=== PATIENT | female | born 1985 | race Caucasian/White ===

== ENCOUNTER 2018-04-23 19:56 | Emergency (ER) | payer BC ==
[~2018-04-23] VITALS: Ht 160 cm; Wt 83.0 kg
[2018-04-23] MEDS ORDERED: SODIUM CHLORIDE FLUSH 10ML SYR IVF ONE ×2 (20:30→21:30)
[2018-04-23] MEDS ORDERED: ONDANSETRON 2MG/ML, 2ML ONE (21:17)
[2018-04-23] MEDS ORDERED: MORPHINE SULFATE 4 MG/ML, 1ML ONE ×3 (21:17→23:43)
[2018-04-23 21:18] LABS: BASOPHILS # (AUTO) 0.13 x10^3/uL (0-0.1); BASOPHILS % (AUTO) 1 % (0-1); EOSINOPHILS % (AUTO) 1 % (1-7); LYMPHOCYTES # (AUTO) 2.68 x10^3/uL (1-3.4); LYMPHOCYTES % (AUTO) 25 % (22-44); MD NO; MEAN CORPUSCULAR HEMOGLOBIN 30.3 pg (27.0-34.8); MEAN CORPUSCULAR HGB CONC 33.8 g/dL (32.4-35.8); MEAN CORPUSCULAR VOLUME 89.7 fL (80-100); MONOCYTES # (AUTO) 0.84 x10^3/uL (0.2-0.8); MONOCYTES % (AUTO) 8 % (2-9); NEUTROPHILS # (AUTO) 6.92 x10^3/uL (1.8-6.8); NEUTROPHILS % (AUTO) 65 % (42-75); PLATELET COUNT 307 x10^3/uL (130-400); RED BLOOD COUNT 4.05 x10^6/uL (3.82-5.3); RED CELL DISTRIBUTION WIDTH 13.8 % (9.6-15.2)
[2018-04-23 21:20] LABS: MICROSCOPIC AUTO
[2018-04-23 21:22] LABS: CULTURE INDICATED? YES
[2018-04-23 21:27] LABS: ALANINE AMINOTRANSFERASE 28 U/L (12-78); ALBUMIN 3.6 g/dL (3.4-5.0); ANION GAP 8 mmol/L (5-15); CALCIUM 8.2 mg/dL (8.5-10.1); CHLORIDE 110 mmol/L (98-107); CREATININE 0.73 mg/dL (0.55-1.02)
[2018-04-23] MEDS ORDERED: ONDANSETRON 2MG/ML, 2ML IVPush ONE (21:30)
[2018-04-23 21:32] LABS: ALKALINE PHOSPHATASE 66 U/L (45-117); BILIRUBIN,TOTAL 0.3 mg/dL (0.2-1.0); TOTAL PROTEIN 7.3 g/dL (6.4-8.2)
[2018-04-23] MEDS: MORPHINE SULFATE 4 MG/ML, 1ML IVPush PRN ×2 (21:52→23:47)
[2018-04-23] MEDS ORDERED: FLOMAX PO (22:13)
[2018-04-23] MEDS ORDERED: NAPROXEN PO (22:13)
[2018-04-23] MEDS ORDERED: OMNIPAQUE 350 MG/ML, 100ML BOTTLE ONE (23:46)
[2018-04-24] MEDS ORDERED: CEFTRIAXONE PMX 1GM/50ML 50 ML ONE (00:11)
[2018-04-24 00:15] VITALS: BP 127/82
[2018-04-24] MEDS ORDERED: CEFTRIAXONE 1,000 MG in SODIUM CHLORIDE 0.9% 50 ML IVPB ONE (00:30)
== END 2018-04-24 00:28 ==
LOC: ED 22:21
DX: R10.13 Epigastric pain (principal); R10.11 Right upper quadrant pain
CPT/HCPCS: 36415; 74018; 74177; 76705; 76770; 80053; 81001; 83690; 84703; 85025; 87086; 96365; 96375; 96376; 99285; J0696; J2405; Q9967

== ENCOUNTER 2019-03-21 10:27 | Inpatient (IN) | payer OTHER ==
[~2019-03-21] VITALS: Ht 160 cm; Wt 92.3 kg
[~2019-03-21 10:27] MED LIST: CEFOTETAN 2 GM ONE; FLOMAX PO; NAPROXEN PO; SUGAMMADEX 200 MG/2 ML IVPush ONE
[2019-03-21] MEDS ORDERED: LACTATED RINGERS 1,000 ML IV SCH (10:49)
[2019-03-21 10:50] VITALS: BP 138/86
[2019-03-21 11:27] LABS: BASOPHILS # (AUTO) 0.02 x10^3/uL (0-0.1); BASOPHILS % (AUTO) 0 % (0-1); EOSINOPHILS % (AUTO) 1 % (1-7); LYMPHOCYTES # (AUTO) 1.76 x10^3/uL (1-3.4); LYMPHOCYTES % (AUTO) 22 % (22-44); MD NO; MEAN CORPUSCULAR HEMOGLOBIN 29.8 pg (27.0-34.8); MEAN CORPUSCULAR HGB CONC 32.9 g/dL (32.4-35.8); MEAN CORPUSCULAR VOLUME 90.7 fL (80-100); MEAN PLATELET VOLUME 7.7 fL (7.4-10.4); MONOCYTES # (AUTO) 0.44 x10^3/uL (0.2-0.8); MONOCYTES % (AUTO) 6 % (2-9); NEUTROPHILS # (AUTO) 5.59 x10^3/uL (1.8-6.8); NEUTROPHILS % (AUTO) 71 % (42-75); PLATELET COUNT 368 x10^3/uL (130-400); RED BLOOD COUNT 4.45 x10^6/uL (3.82-5.3); RED CELL DISTRIBUTION WIDTH 13.1 % (9.6-15.2)
[2019-03-21] MEDS ORDERED: PLEASE ENTER HEIGHT AND WEIGHT MC SCH (11:30)
[2019-03-21 11:38] LABS: INTERNATIONAL NORMALIZED RATIO 0.96 (0.93-1.1); PROTHROMBIN TIME 10.1 Seconds (9.6-11.5)
[2019-03-21 11:45] LABS: ALANINE AMINOTRANSFERASE 19 U/L (12-78); ALBUMIN 3.9 g/dL (3.4-5.0); ANION GAP 10 mmol/L (5-15); CALCIUM 8.9 mg/dL (8.5-10.1); CHLORIDE 107 mmol/L (98-107); CREATININE 0.72 mg/dL (0.55-1.02)
[2019-03-21 11:46] LABS: HCG UR SG 1.009 (1.003-1.030)
[2019-03-21 11:47] LABS: ALKALINE PHOSPHATASE 60 U/L (45-117); BILIRUBIN,TOTAL 0.5 mg/dL (0.2-1.0); TOTAL PROTEIN 7.9 g/dL (6.4-8.2)
[2019-03-21] MEDS ORDERED: OXYcodone IR 5MG TABLET PO ONE (12:00)
[2019-03-21] MEDS ORDERED: FENTANYL PF 250 MCG/5ML ONE (14:43)
[2019-03-21] MEDS ORDERED: MIDAZOLAM 1 MG/ML, 2ML ONE (14:43)
[2019-03-21] MEDS ORDERED: ROCURONIUM 10MG/ML,5ML ONE (14:47)
[2019-03-21] MEDS ORDERED: ONDANSETRON 2MG/ML, 2ML ONE (14:47)
[2019-03-21] MEDS ORDERED: GLYCOPYRROLATE 0.2MG/1ML, 5ML ONE (14:47)
[2019-03-21] MEDS ORDERED: NEOSTIGMINE 1 MG/ML, 10ML ONE (14:47)
[2019-03-21] MEDS ORDERED: CEFAZOLIN 1,000 MG ONE (14:47)
[2019-03-21] MEDS ORDERED: PROPOFOL 10 MG/ML, 20ML ONE (14:47)
[2019-03-21] MEDS ORDERED: DEXAMETHASONE 4 MG/ML, 1ML ONE (14:47)
[2019-03-21] MEDS ORDERED: SUCCINYLCHOLINE 20 MG/ML, 10ML ONE (14:47)
[2019-03-21] MEDS ORDERED: LIDOCAINE/MPF 2%-EPI 1:200K, 20 ML ONE (15:30)
[2019-03-21] MEDS ORDERED: ALBUMIN HUMAN 5% 1,500 ML ONE (15:31)
[2019-03-21] MEDS ORDERED: HYDROmorphone 5 MG, BUPIVACAINE/PF 0.5%, 30ML 62.5 ML in SODIUM CHLORIDE 0.9% 182.5 ML EPIDCONT SCH (17:00)
[2019-03-21] MEDS ORDERED: FENTANYL PF 100 MCG/2ML ONE ×3 (19:17→20:47)
[2019-03-21] MEDS ORDERED: LORazepam 2 MG/ML, 1ML ONE (19:35)
[2019-03-21] MEDS: LORazepam 2 MG/ML, 1ML IVPush PRN ×2 (19:36→19:50)
[2019-03-21] MEDS ORDERED: HYDROmorphone 2 MG/ML, 1ML ONE (19:48)
[2019-03-21] MEDS: FENTANYL PF 100 MCG/2ML IV PRN ×2 (19:58→20:28)
[2019-03-21] MEDS ORDERED: PROMETHAZINE 25 MG/ML, 1ML IV PRN (20:00)
[2019-03-21] MEDS ORDERED: MEPERIDINE/PF 25MG/0.5ML IVPush PRN (20:00)
[2019-03-21] MEDS ORDERED: ONDANSETRON 2MG/ML, 2ML IV PRN (20:00)
[2019-03-21] MEDS ORDERED: DIPHENHYDRAMINE 50 MG/ML, 1ML IVPush PRN (20:00)
[2019-03-21] MEDS ORDERED: ONDANSETRON ODT 8 MG PO PRN (20:00)
[2019-03-21] MEDS ORDERED: PROMETHAZINE 25 MG/ML, 1ML ONE (20:14)
[2019-03-21] MEDS: HYDROmorphone 2 MG/ML, 1ML IVPush PRN ×2 (20:15→20:40)
[2019-03-21] MEDS ORDERED: OPIUM/BELLADONNA SUPP.RECT 16.2-30 MG ONE (20:24)
[2019-03-21] MEDS ORDERED: MEPERIDINE/PF 25MG/ML,1ML ONE (20:31)
[2019-03-21] MEDS: FENTANYL PF 100 MCG/2ML EPI PRN ×2 (20:55→23:06)
[2019-03-21] MEDS ORDERED: OPIUM/BELLADONNA SUPP.RECT 16.2-30 MG PR ONE (21:00)
[2019-03-21] MEDS ORDERED: EPHEDRINE 50 MG/ML, 1ML IVPush PRN (22:30)
[2019-03-21] MEDS ORDERED: FENTANYL PF 100 MCG/2ML EPIDPUSH PRN (22:30)
[2019-03-21] MEDS ORDERED: NALBUPHINE 10 MG/ML, 1ML IV PRN (22:30)
[2019-03-21] MEDS ORDERED: NALOXONE 0.4 MG/ML, 1ML IV PRN ×2 (22:30)
[2019-03-21] MEDS ORDERED: DO NOT GIVE XX SCH ×3 (22:30→23:30)
[2019-03-21] MEDS: KETOROLAC 30 MG/1 ML IM SCH (23:27)
[2019-03-22] MEDS: KETOROLAC 30 MG/1 ML IM SCH ×5 (00:04→21:31)
[2019-03-22] MEDS: POTASSIUM CHLORIDE 20 MEQ in D5%-0.45% NACL 1,000 ML IV SCH ×4 (01:04→22:50)
[2019-03-22 01:23] VITALS: BP 103/68
[2019-03-22] MEDS: FENTANYL PF 100 MCG/2ML EPI PRN ×8 (02:35→22:44)
[2019-03-22 04:11] LABS: ALBUMIN 3.1 g/dL (3.4-5.0); ANION GAP 10 mmol/L (5-15); CALCIUM 7.6 mg/dL (8.5-10.1); CHLORIDE 107 mmol/L (98-107); CREATININE 0.65 mg/dL (0.55-1.02)
[2019-03-22 04:25] LABS: BASOPHILS % (AUTO) 0 % (0-1); EOSINOPHILS % (AUTO) 0 % (1-7); LYMPHOCYTES # (AUTO) 0.65 x10^3/uL (1-3.4); LYMPHOCYTES % (AUTO) 6 % (22-44); MD NO; MEAN CORPUSCULAR HEMOGLOBIN 29.5 pg (27.0-34.8); MEAN CORPUSCULAR HGB CONC 32.6 g/dL (32.4-35.8); MEAN CORPUSCULAR VOLUME 90.4 fL (80-100); MEAN PLATELET VOLUME 7.5 fL (7.4-10.4); MONOCYTES # (AUTO) 0.79 x10^3/uL (0.2-0.8); MONOCYTES % (AUTO) 7 % (2-9); NEUTROPHILS # (AUTO) 9.25 x10^3/uL (1.8-6.8); NEUTROPHILS % (AUTO) 87 % (42-75); PLATELET COUNT 242 x10^3/uL (130-400); RED BLOOD COUNT 3.41 x10^6/uL (3.82-5.3); RED CELL DISTRIBUTION WIDTH 12.9 % (9.6-15.2)
[2019-03-22 06:34] VITALS: BP 105/69
[2019-03-22] MEDS: VENLAFAXINE 75 MG CAP ER PO SCH (08:56)
[2019-03-22] MEDS: FAMOTIDINE 20 MG/2 ML IV SCH ×2 (08:57→22:43)
[2019-03-22] MEDS: SODIUM CHLORIDE FLUSH 10ML SYR IVF SCH ×2 (08:58→22:43)
[2019-03-22] MEDS: HYDROmorphone 5 MG, BUPIVACAINE/PF 0.5%, 30ML 62.5 ML in SODIUM CHLORIDE 0.9% 182.5 ML EPIDCONT SCH (13:30)
[2019-03-22 13:43] VITALS: BP 99/64
[2019-03-22] MEDS ORDERED: LORazepam 2 MG/ML, 1ML IV PRN (14:00)
[2019-03-22 20:03] VITALS: BP 98/62
[2019-03-23] MEDS: FENTANYL PF 100 MCG/2ML EPI PRN ×6 (01:43→22:46)
[2019-03-23] MEDS: KETOROLAC 30 MG/1 ML IM SCH ×4 (03:27→21:00)
[2019-03-23 03:34] VITALS: BP 90/54
[2019-03-23] MEDS: POTASSIUM CHLORIDE 20 MEQ in D5%-0.45% NACL 1,000 ML IV SCH ×3 (04:59→22:32)
[2019-03-23 06:36] LABS: BASOPHILS # (AUTO) 0.09 x10^3/uL (0-0.1); BASOPHILS % (AUTO) 1 % (0-1); EOSINOPHILS # (AUTO) 0.02 x10^3/uL (0-0.4); EOSINOPHILS % (AUTO) 0 % (1-7); LYMPHOCYTES # (AUTO) 1.73 x10^3/uL (1-3.4); LYMPHOCYTES % (AUTO) 17 % (22-44); MEAN CORPUSCULAR HEMOGLOBIN 29.1 pg (27.0-34.8); MEAN CORPUSCULAR HGB CONC 32.4 g/dL (32.4-35.8); MEAN CORPUSCULAR VOLUME 89.9 fL (80-100); MEAN PLATELET VOLUME 7.2 fL (7.4-10.4); MONOCYTES # (AUTO) 1.28 x10^3/uL (0.2-0.8); MONOCYTES % (AUTO) 13 % (2-9); NEUTROPHILS # (AUTO) 7.14 x10^3/uL (1.8-6.8); NEUTROPHILS % (AUTO) 70 % (42-75); PLATELET COUNT 208 x10^3/uL (130-400); RED BLOOD COUNT 2.98 x10^6/uL (3.82-5.3); RED CELL DISTRIBUTION WIDTH 13.6 % (9.6-15.2)
[2019-03-23 06:37] LABS: MD NO
[2019-03-23 06:38] LABS: ANION GAP 4 mmol/L (5-15); CALCIUM 7.9 mg/dL (8.5-10.1); CHLORIDE 112 mmol/L (98-107)
[2019-03-23 06:39] LABS: CREATININE 0.63 mg/dL (0.55-1.02)
[2019-03-23 07:30] VITALS: BP 94/63
[2019-03-23] MEDS: FAMOTIDINE 20 MG/2 ML IV SCH (08:46)
[2019-03-23] MEDS: VENLAFAXINE 75 MG CAP ER PO SCH (08:46)
[2019-03-23] MEDS: SODIUM CHLORIDE FLUSH 10ML SYR IVF SCH ×2 (09:00→21:00)
[2019-03-23] MEDS ORDERED: FENTANYL 25 MCG PATCH TD SCH (10:30)
[2019-03-23] MEDS: HYDROmorphone 5 MG, BUPIVACAINE/PF 0.5%, 30ML 62.5 ML in SODIUM CHLORIDE 0.9% 182.5 ML EPIDCONT SCH (12:33)
[2019-03-23 13:38] VITALS: BP 93/59
[2019-03-23 20:21] VITALS: BP 98/65
[2019-03-23] MEDS: FAMOTIDINE 20 MG TABLET PO SCH (21:00)
[2019-03-23 23:03] VITALS: BP 97/65
[2019-03-24 01:16] VITALS: BP 96/63
[2019-03-24] MEDS: KETOROLAC 30 MG/1 ML IM SCH ×4 (02:54→19:52)
[2019-03-24 04:51] LABS: BASOPHILS # (AUTO) 0.07 x10^3/uL (0-0.1); BASOPHILS % (AUTO) 1 % (0-1); EOSINOPHILS # (AUTO) 0.11 x10^3/uL (0-0.4); EOSINOPHILS % (AUTO) 1 % (1-7); LYMPHOCYTES % (AUTO) 15 % (22-44); MD NO; MEAN CORPUSCULAR HEMOGLOBIN 29.9 pg (27.0-34.8); MEAN CORPUSCULAR HGB CONC 32.7 g/dL (32.4-35.8); MEAN CORPUSCULAR VOLUME 91.5 fL (80-100); MEAN PLATELET VOLUME 7.6 fL (7.4-10.4); MONOCYTES # (AUTO) 1.11 x10^3/uL (0.2-0.8); MONOCYTES % (AUTO) 11 % (2-9); NEUTROPHILS # (AUTO) 7.53 x10^3/uL (1.8-6.8); NEUTROPHILS % (AUTO) 73 % (42-75); PLATELET COUNT 183 x10^3/uL (130-400); RED BLOOD COUNT 2.75 x10^6/uL (3.82-5.3); RED CELL DISTRIBUTION WIDTH 13.5 % (9.6-15.2)
[2019-03-24] MEDS: FENTANYL PF 100 MCG/2ML EPI PRN ×3 (05:56→19:24)
[2019-03-24] MEDS: POTASSIUM CHLORIDE 20 MEQ in D5%-0.45% NACL 1,000 ML IV SCH ×2 (06:21→20:29)
[2019-03-24 08:10] VITALS: BP 102/66
[2019-03-24] MEDS: FAMOTIDINE 20 MG TABLET PO SCH ×2 (10:06→21:00)
[2019-03-24] MEDS: VENLAFAXINE 75 MG CAP ER PO SCH (10:06)
[2019-03-24] MEDS: SODIUM CHLORIDE FLUSH 10ML SYR IVF SCH (10:06)
[2019-03-24 12:19] LABS: MICROSCOPIC AUTO
[2019-03-24 13:25] VITALS: BP 96/62
[2019-03-24 18:20] VITALS: BP 113/74
[2019-03-24 19:19] VITALS: BP 105/72
[2019-03-24] MEDS: ACETAMINOPHEN 325 MG TABLET PO PRN (19:24)
[2019-03-24] MEDS: HYDROmorphone 5 MG, BUPIVACAINE/PF 0.5%, 30ML 62.5 ML in SODIUM CHLORIDE 0.9% 182.5 ML EPIDCONT SCH (19:34)
[2019-03-24] MEDS: PIPERACILLIN/TAZO/PMX 3.375GM 50 ML IV SCH (20:28)
[2019-03-24] MEDS: KETOROLAC 30 MG/1 ML IV SCH (21:00)
[2019-03-25] MEDS: KETOROLAC 30 MG/1 ML IV SCH ×4 (02:29→21:51)
[2019-03-25] MEDS: PIPERACILLIN/TAZO/PMX 3.375GM 50 ML IV SCH ×4 (02:29→21:51)
[2019-03-25] MEDS: SODIUM CHLORIDE FLUSH 10ML SYR IVF SCH ×3 (02:30→21:52)
[2019-03-25] MEDS: POTASSIUM CHLORIDE 20 MEQ in D5%-0.45% NACL 1,000 ML IV SCH ×2 (04:18→13:30)
[2019-03-25 04:37] LABS: MEAN CORPUSCULAR HEMOGLOBIN 29.9 pg (27.0-34.8); MEAN CORPUSCULAR HGB CONC 32.8 g/dL (32.4-35.8); MEAN CORPUSCULAR VOLUME 91.1 fL (80-100); MEAN PLATELET VOLUME 7.5 fL (7.4-10.4); PLATELET COUNT 252 x10^3/uL (130-400); RED BLOOD COUNT 3.01 x10^6/uL (3.82-5.3); RED CELL DISTRIBUTION WIDTH 12.9 % (9.6-15.2)
[2019-03-25 04:39] LABS: ANION GAP 6 mmol/L (5-15); CALCIUM 7.9 mg/dL (8.5-10.1); CHLORIDE 113 mmol/L (98-107); CREATININE 0.62 mg/dL (0.55-1.02)
[2019-03-25 05:43] LABS: BASOPHILS # (AUTO) 0.02 x10^3/uL (0-0.1); BASOPHILS % (AUTO) 0 % (0-1); EOSINOPHILS # (AUTO) 0.06 x10^3/uL (0-0.4); EOSINOPHILS % (AUTO) 1 % (1-7); LYMPHOCYTES # (AUTO) 1.23 x10^3/uL (1-3.4); LYMPHOCYTES % (AUTO) 9 % (22-44); MD SCAN; MONOCYTES # (AUTO) 1.48 x10^3/uL (0.2-0.8); MONOCYTES % (AUTO) 11 % (2-9); NEUTROPHILS # (AUTO) 10.92 x10^3/uL (1.8-6.8); NEUTROPHILS % (AUTO) 80 % (42-75)
[2019-03-25 07:05] VITALS: BP 94/61
[2019-03-25] MEDS: VENLAFAXINE 75 MG CAP ER PO SCH (08:22)
[2019-03-25] MEDS: FAMOTIDINE 20 MG TABLET PO SCH ×2 (08:22→21:51)
[2019-03-25] MEDS: ACETAMINOPHEN 325 MG TABLET PO PRN (08:23)
[2019-03-25 12:24] VITALS: BP 118/73
[2019-03-25 13:26] VITALS: BP 86/54
[2019-03-25] MEDS: ONDANSETRON 2MG/ML, 2ML IVPush PRN (15:04)
[2019-03-25 19:41] VITALS: BP 96/66
[2019-03-26 00:20] LABS: CLOSTRIDIUM DIFFICILE ANTIGEN NEGATIVE; CLOSTRIDIUM DIFFICILE TOXIN NEGATIVE (Negative)
[2019-03-26] MEDS: POTASSIUM CHLORIDE 20 MEQ in D5%-0.45% NACL 1,000 ML IV SCH (00:39)
[2019-03-26 02:28] VITALS: BP 99/67
[2019-03-26] MEDS: OXYcodone/APAP 5/325MG TABLET PO PRN ×5 (02:54→14:56)
[2019-03-26] MEDS: KETOROLAC 30 MG/1 ML IV SCH ×4 (02:56→21:18)
[2019-03-26] MEDS: PIPERACILLIN/TAZO/PMX 3.375GM 50 ML IV SCH ×4 (02:56→21:18)
[2019-03-26 05:01] LABS: ANION GAP 4 mmol/L (5-15); CALCIUM 8.1 mg/dL (8.5-10.1); CHLORIDE 109 mmol/L (98-107)
[2019-03-26 05:13] LABS: MEAN CORPUSCULAR HEMOGLOBIN 29.9 pg (27.0-34.8); MEAN CORPUSCULAR HGB CONC 32.9 g/dL (32.4-35.8); MEAN PLATELET VOLUME 7.5 fL (7.4-10.4); PLATELET COUNT 348 x10^3/uL (130-400); RED CELL DISTRIBUTION WIDTH 12.9 % (9.6-15.2)
[2019-03-26 05:50] LABS: MD YES
[2019-03-26 05:54] LABS: BAND#(MANUAL) 2.41 x10^3/uL; BANDS%(MANUAL) 9 % (0-7); BASOS#(MANUAL) 0.27 x10^3/uL (0-0.1); BASOS% (MANUAL) 1 % (0-1); EOS% (MANUAL) 3 % (1-7); LYMPH#(MANUAL) 1.88 x10^3/uL (1-3.4); LYMPHS% (MANUAL) 7 % (22-44); MONOS#(MANUAL) 2.41 x10^3/uL (0.3-2.7); MONOS% (MANUAL) 9 % (2-9); SEG#(MANUAL) 19.03 x10^3/uL (1.8-6.8); SEGS% (MANUAL) 71 % (42-75)
[2019-03-26 05:56] LABS: <PLATELET ESTIMATE> ADEQUATE; <PLT MORPHOLOGY> NORMAL PLT MORPH; <RBC MORPHOLOGY> NORMAL
[2019-03-26 07:05] VITALS: BP 99/62
[2019-03-26] MEDS: FAMOTIDINE 20 MG TABLET PO SCH ×2 (08:37→21:18)
[2019-03-26] MEDS: VENLAFAXINE 75 MG CAP ER PO SCH (08:37)
[2019-03-26] MEDS: SODIUM CHLORIDE FLUSH 10ML SYR IVF SCH ×2 (08:38→21:00)
[2019-03-26] MEDS ORDERED: POTASSIUM CHLORIDE 20 MEQ in SODIUM CHLORIDE 0.9% 250 ML IV ONE (09:00)
[2019-03-26] MEDS ORDERED: FENTANYL REMOVE PATCH NOTE XX SCH (10:30)
[2019-03-26] MEDS ORDERED: FENTANYL 25 MCG PATCH TD SCH (10:30)
[2019-03-26 13:09] VITALS: BP 99/63
[2019-03-26] MEDS: OXYcodone/APAP 7.5/325MG TABLET PO PRN ×2 (17:12→21:32)
[2019-03-26 18:52] VITALS: BP 114/87
[2019-03-27 00:50] VITALS: BP 97/59
[2019-03-27] MEDS: KETOROLAC 30 MG/1 ML IV SCH ×3 (03:07→16:19)
[2019-03-27] MEDS: PIPERACILLIN/TAZO/PMX 3.375GM 50 ML IV SCH (03:09)
[2019-03-27] MEDS: OXYcodone/APAP 7.5/325MG TABLET PO PRN ×5 (03:32→22:00)
[2019-03-27 04:49] LABS: MEAN CORPUSCULAR HEMOGLOBIN 29.9 pg (27.0-34.8); MEAN CORPUSCULAR HGB CONC 32.5 g/dL (32.4-35.8); MEAN CORPUSCULAR VOLUME 91.9 fL (80-100); MEAN PLATELET VOLUME 7.4 fL (7.4-10.4); PLATELET COUNT 413 x10^3/uL (130-400); RED BLOOD COUNT 3.21 x10^6/uL (3.82-5.3); RED CELL DISTRIBUTION WIDTH 13.4 % (9.6-15.2)
[2019-03-27 04:54] LABS: ANION GAP 7 mmol/L (5-15); CALCIUM 8.1 mg/dL (8.5-10.1); CHLORIDE 111 mmol/L (98-107); CREATININE 0.58 mg/dL (0.55-1.02)
[2019-03-27 05:30] LABS: MD YES
[2019-03-27 05:32] LABS: BAND#(MANUAL) 0.62 x10^3/uL; BANDS%(MANUAL) 3 % (0-7); EOS#(MANUAL) 0.62 x10^3/uL (0.0-0.4); EOS% (MANUAL) 3 % (1-7); LYMPH#(MANUAL) 1.24 x10^3/uL (1-3.4); LYMPHS% (MANUAL) 6 % (22-44); MONOS#(MANUAL) 1.24 x10^3/uL (0.3-2.7); MONOS% (MANUAL) 6 % (2-9); SEG#(MANUAL) 16.89 x10^3/uL (1.8-6.8); SEGS% (MANUAL) 82 % (42-75)
[2019-03-27 05:33] LABS: ANISOCYTOSIS 1+; POLYCHROMASIA 1+
[2019-03-27 05:34] LABS: <PLATELET ESTIMATE> INCREASED; LARGE PLATELETS 1+
[2019-03-27 06:53] VITALS: BP 97/62
[2019-03-27] MEDS: VENLAFAXINE 75 MG CAP ER PO SCH (09:00)
[2019-03-27] MEDS: SODIUM CHLORIDE FLUSH 10ML SYR IVF SCH ×2 (09:00→22:01)
[2019-03-27] MEDS ORDERED: VENLAFAXINE XR 37.5MG CAP.ER.24H PO SCH (09:30)
[2019-03-27] MEDS ORDERED: LORazepam 0.5MG TABLET PO PRN (09:30)
[2019-03-27] MEDS: D5%-0.45NACL+KCL 20MEQ 1,000 ML IV SCH (10:25)
[2019-03-27] MEDS: FAMOTIDINE 20 MG TABLET PO SCH ×2 (10:26→22:00)
[2019-03-27] MEDS: PHENAZOPYRIDINE 100 MG TABLET PO SCH ×3 (11:30→22:00)
[2019-03-27] MEDS: AMPICILLIN 500MG CAPSULE PO SCH ×3 (11:30→22:00)
[2019-03-27 12:52] VITALS: BP 101/67
[2019-03-27] MEDS: ONDANSETRON 2MG/ML, 2ML IVPush PRN (13:28)
[2019-03-27 19:20] VITALS: BP 101/65
[2019-03-28] MEDS: D5%-0.45NACL+KCL 20MEQ 1,000 ML IV SCH (01:11)
[2019-03-28 01:58] VITALS: BP 108/64
[2019-03-28] MEDS: OXYcodone/APAP 7.5/325MG TABLET PO PRN ×5 (01:58→15:39)
[2019-03-28 04:42] LABS: MEAN CORPUSCULAR HEMOGLOBIN 29.5 pg (27.0-34.8); MEAN CORPUSCULAR HGB CONC 32.2 g/dL (32.4-35.8); MEAN CORPUSCULAR VOLUME 91.6 fL (80-100); MEAN PLATELET VOLUME 7.3 fL (7.4-10.4); PLATELET COUNT 490 x10^3/uL (130-400); RED BLOOD COUNT 3.13 x10^6/uL (3.82-5.3); RED CELL DISTRIBUTION WIDTH 13.7 % (9.6-15.2)
[2019-03-28 04:43] LABS: ANION GAP 7 mmol/L (5-15); CALCIUM 7.8 mg/dL (8.5-10.1); CHLORIDE 107 mmol/L (98-107); CREATININE 0.61 mg/dL (0.55-1.02)
[2019-03-28 05:50] LABS: BASOPHILS # (AUTO) 0.07 x10^3/uL (0-0.1); BASOPHILS % (AUTO) 0 % (0-1); EOSINOPHILS # (AUTO) 0.42 x10^3/uL (0-0.4); EOSINOPHILS % (AUTO) 3 % (1-7); LYMPHOCYTES # (AUTO) 1.47 x10^3/uL (1-3.4); LYMPHOCYTES % (AUTO) 9 % (22-44); MD SCAN; MONOCYTES # (AUTO) 1.88 x10^3/uL (0.2-0.8); MONOCYTES % (AUTO) 12 % (2-9); NEUTROPHILS # (AUTO) 12.51 x10^3/uL (1.8-6.8); NEUTROPHILS % (AUTO) 77 % (42-75)
[2019-03-28] MEDS: AMPICILLIN 500MG CAPSULE PO SCH ×3 (05:58→16:43)
[2019-03-28 06:49] VITALS: BP 100/67
[2019-03-28] MEDS: SODIUM CHLORIDE FLUSH 10ML SYR IVF SCH (09:00)
[2019-03-28] MEDS ORDERED: VENLAFAXINE 75 MG HOMEMEDPO SCH (09:00)
[2019-03-28] MEDS: PHENAZOPYRIDINE 100 MG TABLET PO SCH ×2 (09:58→16:43)
[2019-03-28] MEDS: FAMOTIDINE 20 MG TABLET PO SCH (09:58)
[2019-03-28] MEDS ORDERED: POTASSIUM CHLORIDE 20 MEQ in SODIUM CHLORIDE 0.9% 250 ML IV ONE (10:30)
[2019-03-28 12:52] VITALS: BP 119/72
[2019-03-28] MEDS ORDERED: OXYC-306 PO (17:35)
[2019-03-28] MEDS ORDERED: ONDA4TAB7 PO (17:36)
[2019-03-28] MEDS ORDERED: AMPI500C2 PO (17:37)
== END 2019-03-28 18:45 | disposition home or self-care (01) | DRG 737 ==
LOC: ORIP 10:27 → 3NW 21:58
PROVIDERS: ADMIT Specialist; ATTEND Specialist
PROC: 0UT70ZZ Resection of Bilateral Fallopian Tubes, Open Approach (ICD-10-PCS; 2019-03-21)
PROC: 0UT90ZZ Resection of Uterus, Open Approach (ICD-10-PCS; 2019-03-21)
PROC: 0DTU0ZZ Resection of Omentum, Open Approach (ICD-10-PCS; 2019-03-21)
PROC: 0DTJ0ZZ Resection of Appendix, Open Approach (ICD-10-PCS; 2019-03-21)
PROC: 0DBN0ZZ Excision of Sigmoid Colon, Open Approach (ICD-10-PCS; 2019-03-21)
PROC: 0BBT0ZZ Excision of Diaphragm, Open Approach (ICD-10-PCS; 2019-03-21)
PROC: 0DBW0ZZ Excision of Peritoneum, Open Approach (ICD-10-PCS; 2019-03-21)
PROC: 07BC0ZZ Excision of Pelvis Lymphatic, Open Approach (ICD-10-PCS; 2019-03-21)
PROC: 07BD0ZZ Excision of Aortic Lymphatic, Open Approach (ICD-10-PCS; 2019-03-21)
PROC: 03HY32Z Insertion of Monitoring Device into Upper Artery, Percutaneous Approach (ICD-10-PCS; 2019-03-21)
PROC: 0UT20ZZ Resection of Bilateral Ovaries, Open Approach (ICD-10-PCS; principal; 2019-03-21 14:30)
DX: C56.1 Malignant neoplasm of right ovary (principal); K56.7 Ileus, unspecified; N39.0 Urinary tract infection, site not specified; C56.2 Malignant neoplasm of left ovary; D64.9 Anemia, unspecified; E87.6 Hypokalemia; F41.9 Anxiety disorder, unspecified; N32.89 Other specified disorders of bladder; Z88.2 Allergy status to sulfonamides; Q62.5 Duplication of ureter; I89.8 Other specified noninfective disorders of lymphatic vessels and lymph nodes
CPT/HCPCS: 36415; J3490; S0020; 71045; 71046; 80048; 80053; 81001; 81025; 82040; 82570; 83605; 85025; 85610; 85730; 86850; 86900; 86923; 87040; 87070; 87077; 87086; 87186; 87205; 87324; 88304; 88305; 88307; 88309; C1729; G0378; J0690; J1100; J1170; J1885; J2250; J2270; J2405; J2543; J2550; J2704; J2710; J3010; J3480; P9045; C1765; J0330; J2060; J7050; J7120

== ENCOUNTER 2021-02-18 17:11 | Emergency (ER) | payer MEDICAID, OTHER ==
[~2021-02-18] VITALS: Ht 160 cm; Wt 91.1 kg
[~2021-02-18 17:11] MED LIST changes: +AMPI500C2 PO; -CEFOTETAN 2 GM ONE; +ONDA4TAB7 PO; +OXYC1TAB17 PO; -SUGAMMADEX 200 MG/2 ML IVPush ONE
--- NOTE | 2021-02-18 18:17 | NUR ---
TO [facility] FROM [facility]
[2021-02-18] MEDS ORDERED: OXYCODONE PO (18:36)
[2021-02-18] MEDS ORDERED: VENL37.52 PO (18:36)
--- NOTE | 2021-02-18 18:39 | NUR ---
DR REYNA AT BEDSIDE, PT ASSESSMENT, POC REVIEWED AND QUESTIONS ANSWERED. BP AND SP02 MONITORING PLACED. CALL LIGHT W/I REACH.
--- NOTE | 2021-02-18 18:52 | NUR ---
[facility] RPT TO WENCESLAO AGUIRRE
[2021-02-18] MEDS ORDERED: HYDROmorphone 1 MG/ML, 1ML INJ IV ONE (19:00)
[2021-02-18] MEDS ORDERED: ONDANSETRON 2MG/ML, 2ML IVPush ONE (19:00)
[2021-02-18] MEDS ORDERED: SODIUM CHLORIDE FLUSH 10ML SYR IVF ONE (19:00)
[2021-02-18] MEDS ORDERED: HYDROmorphone 1 MG/ML, 1ML INJ ONE (19:01)
[2021-02-18] MEDS ORDERED: ONDANSETRON 2MG/ML, 2ML ONE (19:01)
[2021-02-18 19:13] LABS: ALANINE AMINOTRANSFERASE 38 U/L (12-78); ALBUMIN 4.2 g/dL (3.4-5.0); ANION GAP 4 mmol/L (5-15); CALCIUM 9.5 mg/dL (8.5-10.1); CHLORIDE 109 mmol/L (98-107); CREATININE 0.83 mg/dL (0.55-1.02)
[2021-02-18 19:15] LABS: ALKALINE PHOSPHATASE 71 U/L (45-117); BILIRUBIN,TOTAL 0.3 mg/dL (0.2-1.0); TOTAL PROTEIN 8.8 g/dL (6.4-8.2)
[2021-02-18 19:18] LABS: BASOPHILS % (AUTO) 1 % (0-1); EOSINOPHILS % (AUTO) 2 % (1-7); LYMPHOCYTES % (AUTO) 29 % (22-44); MEAN CORPUSCULAR HEMOGLOBIN 30.1 pg (27.0-34.8); MEAN CORPUSCULAR HGB CONC 33.4 g/dL (32.4-35.8); MEAN PLATELET VOLUME 7.5 fL (7.4-10.4); MONOCYTES % (AUTO) 8 % (2-9); NEUTROPHILS % (AUTO) 61 % (42-75); PLATELET COUNT 222 x10^3/uL (130-400); RED BLOOD COUNT 5.45 x10^6/uL (3.82-5.3); RED CELL DISTRIBUTION WIDTH 14.5 % (9.6-15.2)
[2021-02-18] MEDS ORDERED: OXYcodone/APAP 10/325MG TABLET ONE (19:54)
[2021-02-18] MEDS ORDERED: OXYcodone/APAP 10/325MG TABLET PO ONE (20:00)
[2021-02-18 20:03] VITALS: BP 146/99
--- NOTE | 2021-02-18 20:03 | NUR ---
AFTER PAIN MEDICATIONS ADMINISTERED PT REPORTED OF FEELING MUCH BETTER, PT STATED SHE WAS GOING TO GET AN UBER TO GO HOME SINCE SHE WAS GIVEN NARCOTIC PAIN MEDS
== END 2021-02-18 20:06 | disposition home or self-care (01) ==
LOC: ED 17:41
DX: R10.11 Right upper quadrant pain (principal); C56.9 Malignant neoplasm of unspecified ovary; R10.12 Left upper quadrant pain; F17.200 Nicotine dependence, unspecified, uncomplicated; Z90.49 Acquired absence of other specified parts of digestive tract
CPT/HCPCS: 36415; 80053; 85025; 96374; 96375; 99284; J1170; J2405

== ENCOUNTER 2021-02-19 09:56 | Emergency (ER) | payer MEDICAID ==
[~2021-02-19] VITALS: Ht 160 cm; Wt 81.1 kg
[~2021-02-19 09:56] MED LIST changes: +OXYCODONE PO; +VENL37.52 PO
--- NOTE | 2021-02-19 11:03 | NUR ---
PT IN [facility] AT THIS TIME. PT TEARFUL AND CRYING IN ROOM STATING "I DON'T WANT TO ". PT PROVIDED POSITIVE VERBAL REINFORCEMENT. PROVIDER AT FOR PT HISTORY AND ASSESSMENT. PT EDUCATED ON ER PROCESS BUT TEARFUL AND DOES NOT VERBALIZE UNDERSTANDING. PT DENIES SI.
[2021-02-19 11:14] LABS: BASOPHILS % (AUTO) 1 % (0-1); EOSINOPHILS % (AUTO) 2 % (1-7); LYMPHOCYTES % (AUTO) 24 % (22-44); MEAN CORPUSCULAR HEMOGLOBIN 30.7 pg (27.0-34.8); MEAN CORPUSCULAR HGB CONC 34.1 g/dL (32.4-35.8); MEAN PLATELET VOLUME 7.4 fL (7.4-10.4); MONOCYTES % (AUTO) 7 % (2-9); NEUTROPHILS % (AUTO) 68 % (42-75); PLATELET COUNT 219 x10^3/uL (130-400); RED CELL DISTRIBUTION WIDTH 14.6 % (9.6-15.2)
[2021-02-19 11:20] LABS: ALANINE AMINOTRANSFERASE 39 U/L (12-78); ALBUMIN 4.5 g/dL (3.4-5.0); ANION GAP 7 mmol/L (5-15); CALCIUM 10.7 mg/dL (8.5-10.1); CHLORIDE 107 mmol/L (98-107); CREATININE 0.94 mg/dL (0.55-1.02)
[2021-02-19 11:22] LABS: ALKALINE PHOSPHATASE 74 U/L (45-117); BILIRUBIN,TOTAL 0.5 mg/dL (0.2-1.0)
[2021-02-19 12:32] VITALS: BP 144/88
[2021-02-19 13:05] LABS: MICROSCOPIC INDICATED
== END 2021-02-19 13:03 | disposition home or self-care (01) ==
LOC: ED 10:05
DX: R10.9 Unspecified abdominal pain (principal); Z90.89 Acquired absence of other organs; Z90.710 Acquired absence of both cervix and uterus; Z85.43 Personal history of malignant neoplasm of ovary; Z88.2 Allergy status to sulfonamides
CPT/HCPCS: 36415; 80053; 81001; 82330; 82803; 82947; 84132; 84295; 85014; 85025; 99283

== ENCOUNTER 2021-02-24 12:56 | Emergency (ER) | payer MEDICAID ==
[~2021-02-24] VITALS: Ht 160 cm; Wt 79.4 kg
--- NOTE | 2021-02-24 13:07 | NUR ---
PT CAME IN [place] SUDDEN ONSET SOB, NAUSEA AND DIZZINESS THAT STARTED ABOUT AN HOUR AGO. PT ALSO DIAPHORETIC AND PALE UPON ARRIVAL. PT HAS HX OF OVARIAN CANCER AND PE. PT ON COUMADIN FOR PE. RAN OUT OF COUMADIN 2 DAYS AGO. "THIS FEELS LIKE A PE". PT ALSO RECENTLY FINISHED CHEMO IN JANUARY FOR OVARIAN CANCER. PT ALSO REPORTS SHE WAS TAKING OPIATE PAIN MEDS AND QUIT COLD [place]URKEY LAST THURSDAY AND WENT TO [facility] TO DETOX AND WAS DC ON THURSDAY. MD BEDSIDE. PT CONNECTED TO ALL MONITORING EQUIPMENT
[2021-02-24 13:30] LABS: BASOPHILS % (AUTO) 1 % (0-1); EOSINOPHILS % (AUTO) 0 % (1-7); LYMPHOCYTES % (AUTO) 22 % (22-44); MEAN CORPUSCULAR HEMOGLOBIN 30.4 pg (27.0-34.8); MEAN CORPUSCULAR HGB CONC 33.6 g/dL (32.4-35.8); MEAN PLATELET VOLUME 7.6 fL (7.4-10.4); MONOCYTES % (AUTO) 9 % (2-9); NEUTROPHILS % (AUTO) 68 % (42-75); PLATELET COUNT 255 x10^3/uL (130-400); RED BLOOD COUNT 5.54 x10^6/uL (3.82-5.3); RED CELL DISTRIBUTION WIDTH 14.1 % (9.6-15.2)
[2021-02-24] MEDS ORDERED: SODIUM CHLORIDE FLUSH 10ML SYR IVF ONE (13:30)
[2021-02-24 13:40] LABS: ALBUMIN 4.8 g/dL (3.4-5.0); ANION GAP 7 mmol/L (5-15); CALCIUM 9.9 mg/dL (8.5-10.1); CHLORIDE 109 mmol/L (98-107); CREATININE 0.91 mg/dL (0.55-1.02)
[2021-02-24 13:44] LABS: TROPONIN I < 0.015 ng/mL (0.000-0.045)
--- NOTE | 2021-02-24 14:32 | NUR ---
PT RESTING IN [facility]. VSS. NAD.
[2021-02-24 15:39] VITALS: BP 136/84
--- NOTE | 2021-02-24 15:39 | NUR ---
PT RESTING IN [facility].
[2021-02-24] MEDS ORDERED: ACETAMINOPHEN 325 MG TABLET ONE (15:47)
[2021-02-24] MEDS ORDERED: ACETAMINOPHEN 325 MG TABLET PO ONE (16:30)
== END 2021-02-24 17:32 | disposition home or self-care (01) ==
LOC: ED 14:08
DX: R42 Dizziness and giddiness (principal); R06.00 Dyspnea, unspecified; R94.31 Abnormal electrocardiogram [ECG] [EKG]; R61 Generalized hyperhidrosis; Z85.43 Personal history of malignant neoplasm of ovary; F17.200 Nicotine dependence, unspecified, uncomplicated
CPT/HCPCS: 36415; 71045; 80048; 82040; 83605; 84484; 85025; 85379; 93005; 99285